=== PATIENT | female | born 1985 | race Caucasian/White ===

== ENCOUNTER 2021-06-01 15:58 | Day surgery (SDC) | payer BC ==
[2021-05-31 08:43] VITALS: BMI 33.5
--- NOTE | 2021-05-31 14:08 | P.GSHP ---
History of Present Illness H&P Date: 05/30/21 Chief Complaint: Right renal colic The patient is a 35-year-old white female with a history of recurrent urolithiasis. In early May, she was admitted to [facility] with severe right hydronephrosis due to an 11 mm right mid-distal ureteral calculus. Additional 2 mm calculi were seen within the right proximal ureter and a right lower pole calyx. She underwent right ureteral stent insertion on May 12, and her pain is much improved. She now comes for ureteroscopic removal of the calculi. - Constitutional Constitutional: Denies chills, Denies fever - Gastrointestinal Gastrointestinal: Reports nausea, Denies vomiting - Genitourinary (Female) Genitourinary: Reports flank pain, Reports hematuria, Reports kidney stones Past Medical History - Past Family History Father Family Medical History: Cancer Brother(s) Family Medical History: Deep Vein Thrombosis (DVT) Medications and Allergies Home Medications Medication Instructions Recorded Confirmed Type Ciprofloxacin HCl [Cipro] 250 mg PO BID 05/31/21 05/31/21 History Melatonin 5 mg PO HS PRN 05/31/21 05/31/21 History Sertraline [Zoloft] 50 mg PO HS 05/31/21 05/31/21 History Solifenacin Succinate [Vesicare] 5 mg PO DAILY 05/31/21 05/31/21 History Tamsulosin [Flomax] 0.4 mg PO HS 05/31/21 05/31/21 History modafiniL [Provigil] 200 mg PO DAILY PRN 05/31/21 05/31/21 History Allergies Allergy/AdvReac Type Severity Reaction Status Date / Time No Known Allergies Allergy Verified 05/31/21 08:32 Surgical - Exam - General well developed, well nourished, no distress - Neck no masses, trachea midline - Respiratory normal respiratory effort, clear to auscultation - Cardiovascular Rhythm: regular - Abdomen Abdomen: soft, non tender, no guarding, no rigid, no rebound - Psychiatric oriented to time, oriented to person, oriented to place, speech is normal, memory intact Results - Imaging CT scan - abdomen: report reviewed, image reviewed Assessment and Plan (1) Calculus of ureter Status: Acute Code(s): N20.1 - CALCULUS OF URETER SNOMED Code(s): 55007194 Plan: Cystoscopy, right ureteral stent removal, right ureteroscopy with holmium laser lithotripsy. The procedure has been reviewed in detail with the patient. She is aware of potential risks, which include anesthesia, infection, ureteral injury, and inability to remove all calculi.
[~2021-06-01 15:58] MED LIST: DEXAMETHASONE SOD PHOSPHATE 4 MG/ML 1 ML VIAL IV ONE; HYDROmorphone 0.5 MG/0.5 ML SYRINGE IVP PRN; LACTATED RINGERS 1,000 ML IV SCH; MIDAZOLAM 2 MG/2 ML VIAL IV PRN; ONDANSETRON 4 MG/2 ML VIAL IVP ONE; SCOPOLAMINE 1.5MG/72HR PATCH TRANSDERM ONE
--- NOTE | 2021-06-01 16:34 | XR ---
EXAMINATION TYPE: XR KUB DATE OF EXAM: 06/01/2021 COMPARISON: NONE HISTORY: Preop TECHNIQUE: 2 views supine FINDINGS: There is no sign of intestinal obstruction or pneumoperitoneum. Fecal pattern is normal. Th ere is right-sided double-J ureteral stent. There are small calcifications over the lower pole right kidney. Lung bases are clear. There is no evidence of a mass. IMPRESSION: Nonacute abdomen.
[2021-06-01] MEDS ORDERED: MIDAZOLAM 2 MG/2 ML VIAL ONE (19:46)
[2021-06-01] MEDS ORDERED: fentaNYL (PF) 50 MCG/ML 2 ML AMP ONE (19:46)
[2021-06-01] MEDS ORDERED: LIDOCAINE 1% INJ 10MG/ML (20 ML MDV) ONE (19:46)
[2021-06-01] MEDS ORDERED: PROPOFOL 10 MG/ML 20 ML VIAL IV ONE (19:46)
[2021-06-01] MEDS ORDERED: KETOROLAC 15 MG/ML 1 ML VIAL ONE (21:37)
[2021-06-01] MEDS ORDERED: KETOROLAC 15 MG/ML 1 ML VIAL IVP STA (21:37)
--- NOTE | 2021-06-01 21:43 | P.OP ---
Date of Procedure: 06/01/21 Preoperative Diagnosis: Right ureteral calculus Postoperative Diagnosis: Same Procedure(s) Performed: Cystoscopy, right ureteral stent removal, right ureteroscopy with Holmium laser lithotripsy and stone basketing Anesthesia: JADA Surgeon: César Duke Estimated Blood Loss (ml): 10 IV fluids (ml): 900 Pathology: other (Calculus fragments, sent for chemical analysis) Condition: stable Disposition: PACU Indications for Procedure: The patient is a 35-year-old white female with a history of recurrent urolithiasis. In early May, she was admitted to [facility] with severe right hydronephrosis due to an 11 mm right mid-distal uret eral calculus. Additional 2 mm calculi were seen within the right proximal ureter and a right lower pole calyx. She underwent right ureteral stent insertion on May 12, and her pain is much improved. She now comes for ureteroscopic removal of the calculi. Operative Findings: Large right mid-ureteral calculus, fragmented and removed completely. Description of Procedure: The patient was taken to the operating room and placed in the dorsolithotomy position, with legs supported in Artem stirrups. The external genitalia was prepped and draped sterilely. The 30 lens was used to introduce the 21-Kyrgyz Carlson cystoscopic sheath through the urethra and into the bladder under direct vision. The bladder was examined in its entirety. Grasping forceps were used to grasp the distal end of the right ureteral stent which was removed along with the cystoscope. The Carlson semirigid ureteroscope was advanced into the bladder, and the right ureteral orifice was cannulated. The ureteroscope was slowly advanced under direct vision, up to the calculus. The 272 micron Holmium laser probe was passed through the ureteroscope, and lithotripsy was performed. The calculus was very dense, likely composed of calcium oxalate monohydrate. The calculus was fragmented completely. A 1.9-Kyrgyz nitinol basket was then used to remove all of the calculus fragments, which were sent for chemical analysis. Final inspection of the ureter showed no evidence of ureteral trauma, though there was edema where the calculus had been impacted. There were no residual calculus fragments. The patient tolerated the procedure well and was taken to the recovery room in stable condition. [id number] Report: Procedure Acuity: Semi-Urgent Stone Size and Location: 11 mm, right mid ureter Ureteral Dilation: No Ureteral Access Sheath Used: No Stone Sent for Analysis: Yes All Stones/Fragments Were Removed with a Basket: Yes Complications: No Preoperative Antibiotics Given: Yes Stent Placed: No Discharge Medications: None
[2021-06-01 21:45] VITALS: TEMP 98.1
[2021-06-01 21:58] VITALS: RESP 16
[2021-06-01] MEDS ORDERED: ONDANSETRON 4 MG/2 ML VIAL ONE (22:11)
[2021-06-01] MEDS ORDERED: ONDANSETRON 4 MG/2 ML VIAL IVP ONE (22:13)
[2021-06-01 22:19] VITALS: BP 138/79; PULSE 89
== END 2021-06-01 22:34 ==
LOC: OR 15:58
PROVIDERS: ATTEND Urology
DX: N20.1 Calculus of ureter (principal); F17.210 Nicotine dependence, cigarettes, uncomplicated; Z87.442 Personal history of urinary calculi
CPT/HCPCS: 52356; 81025; 82365; 74018; J2250; J1100; J0690; J2405; J2001; J3010; J1885; J2704; J1170